=== PATIENT | male | born 1970 | race Caucasian/White ===

== ENCOUNTER → 2020-06-26 | Outpatient (CLI) | payer OTHER ==
[~2020-06-26] MED LIST: HYDR-3164 PO
== END | disposition home or self-care (01) ==
LOC: LAB 12:55
PROVIDERS: ATTEND Surgery
DX: Z01.818 Encounter for other preprocedural examination (principal); Z11.59 Encounter for screening for other viral diseases; K40.90 Unilateral inguinal hernia, without obstruction or gangrene, not specified as recurrent; Z88.6 Allergy status to analgesic agent
CPT/HCPCS: U0003-CS

== ENCOUNTER 2020-06-29 07:59 | Day surgery (SDC) | payer OTHER ==
[~2020-06-29] VITALS: Ht 175.3 cm; Wt 105.5 kg
[~2020-06-29 07:59] MED LIST changes: +ACETAMINOPHEN 500 MG TABLET PO PRN; -HYDR-3164 PO; +IV RINGERS,LACTATED 1000ML 1,000 ML IV SCH; +ONDANSETRON PF 4 MG/2 ML VIAL. IV PRN; +PROCHLORPERAZINE 10 MG/2 ML VIAL. IV PRN; +fentaNYL PF VIAL 100 MCG/2 ML VIAL IV PRN
[2020-06-29] MEDS ORDERED: MINERAL OIL for SURGERY 10 ML VIAL. MC ONE (08:36)
[2020-06-29] MEDS ORDERED: BUPIVACAINE-EPI 0.25%-1:200000 MPF 30 ML VIAL. ONE (08:36)
[2020-06-29] MEDS ORDERED: PROPOFOL 10 MG/ML (20ML) VIAL. IV ONE ×2 (08:38→10:04)
[2020-06-29] MEDS ORDERED: DEXAMETHASONE SOD PHOS 4 MG/ML VIAL ONE ×2 (08:39→10:04)
[2020-06-29] MEDS ORDERED: LIDOCAINE 2% PF 5 ML VIAL. ONE (08:39)
[2020-06-29] MEDS ORDERED: ROCURONIUM 50 MG/5 ML VIAL. ONE (08:39)
[2020-06-29] MEDS ORDERED: ONDANSETRON PF 4 MG/2 ML VIAL. ONE (08:39)
[2020-06-29] MEDS ORDERED: fentaNYL PF VIAL 100 MCG/2 ML VIAL ONE ×2 (08:40→11:11)
[2020-06-29] MEDS ORDERED: ceFAZolin 2GM PREMIX 2 GM/50 ML BAG IV ONE (09:00)
[2020-06-29] MEDS ORDERED: SUCCINYLCHOLINE 200 MG/10 ML VIAL. ONE (09:03)
[2020-06-29] MEDS ORDERED: MIDAZOLAM HCL/PF 2 MG/2 ML VIAL. ONE (09:03)
[2020-06-29] MEDS ORDERED: GLYCOPYRROLATE 1 MG/5 ML VIAL. ONE (09:43)
--- NOTE | 2020-06-29 10:40 | PDOC4 ---
Operative Note Operative Note Date: June 292019 at 1037 Preoperative diagnosis: Right inguinal hernia Postoperative diagnosis: Same Procedure: Robotic assisted laparoscopic right inguinal hernia repair with mesh Surgeon: Asher Specimen: None Dictation: Patient is a 49-year-old gentleman is complained of pain in his right groin with a bulge consistent with a hernia. Procedure of robotic assisted laparoscopic right inguinal hernia repair with mesh was explained to the patient detail was benefits were also discussed occluding bleeding infection injury to intra-abdominal contents possible necessitating further or open operations alternatives to this procedure also discussed with the patient who seemed to understand and gave both verbal and written consent to have the procedure performed. Patient was taken to the operating room placed in the supine position general anesthesia was initiated once patient was sleeping and intubated he was repositioned in the low lithotomy positioning. His abdomen was prepped and draped usual sterile fashion using ChloraPrep and area just above the umbilicus was injected with quarter percent Marcaine with epinephrine incision was made 11 blade scalpel and a varies needle was placed within the a bdomen creating pneumoperitoneum once this complete a millimeter da Swati port was placed in the da Swati camera was then placed within the abdomen which was inspected no other red maladies were noted was noted he did have a right inguinal hernia. A 8 mm da Swati port was placed in the left midabdomen and one in the right midabdomen the da Swati robot was brought and docked all port sites surgeon went to the robotic console using a grasper and Endo Bertram scissors the peritoneum over the right groin was incised and a window propagated inferiorly reducing the hernia sac and contents. Once this was complete a Bard 3D max mesh for the right side was placed over the floor of the inguinal canal covering the hernia defect the peritoneum was then closed over the mesh with a running 20V lock absorbable suture. The da Swati robot was undocked from all port sites pneumoperitoneum was reduced all ports were removed all port sites were closed with 4 subcuticular Monocryl Mastisol Steri-Strips and island dressings were applied. Patient was awakened and extubated operating room taken to recovery in stable condition all sponge instrument needle counts listed as correct estimated blood loss 5 mL. YOGESH NAVARRO MD Jun 29, 2020 10:40
--- NOTE | 2020-06-29 10:41 | DISCH ---
DISCHARGE INSTRUCTIONS Condition on Discharge Condition on Discharge: Stable Activity After Discharge Activity Instructions for Disc: Avoid exertion Other activity instructions: No lifting more than 20 pounds for 2 weeks Diet after Discharge Diet after Discharge: Regular Wound Incision Care Other wound/incision instructi: May shower in 24 hours Contacting the DRGiovana after DC Call your doctor for: If your condition worsens Follow-Up Follow up with: Follow-up Dr. Navarro in 2 weeks YOGESH NAVARRO MD Jun 29, 2020 10:41
[2020-06-29] MEDS ORDERED: NEOSTIGMINE METHYLSULFATE 5 MG/5 ML SYRINGE. ONE (10:42)
[2020-06-29] MEDS ORDERED: SEVOFLURANE 61 TO 120 MINUTES. IH ONE (10:42)
[2020-06-29] MEDS ORDERED: KETOROLAC 30 MG/ML VIAL. ONE (11:02)
[2020-06-29] MEDS ORDERED: oxyCODONE/APAP 5/325 1 TAB TABLET PO ONE ×2 (11:15)
[2020-06-29 11:50] VITALS: BP 139/93
[2020-06-29] MEDS ORDERED: HYDR-3164 PO (11:55)
[2020-06-29] MEDS ORDERED: HYDROcodone/APAP 5/325MG 1 TAB TABLET ONE (11:57)
[2020-06-29] MEDS ORDERED: HYDROcodone/APAP 5/325MG 1 TAB TABLET PO ONE (12:00)
== END 2020-06-29 12:30 | disposition home or self-care (01) ==
LOC: SURG 07:59 → EDUNIT# 09:30 → SURG 12:30
PROVIDERS: ATTEND Surgery
DX: K40.90 Unilateral inguinal hernia, without obstruction or gangrene, not specified as recurrent (principal); E66.9 Obesity, unspecified; Z98.890 Other specified postprocedural states; Z68.34 Body mass index [BMI] 34.0-34.9, adult; Z88.8 Allergy status to other drugs, medicaments and biological substances; Z79.899 Other long term (current) drug therapy
CPT/HCPCS: 49650; A7015; C1781; J0330; J0690; J1100; J1885; J2250; J2405; J2704; J2710; J3010; J3490; S2900